=== PATIENT | female | born 1965 | race Caucasian/White ===

== ENCOUNTER 2023-03-14 15:26 | Outpatient (AMB) | payer SELFPAY ==
--- NOTE | 2023-03-14 15:28 | HO.NEPHOV_ITS ---
HPI HPI Comments History of Present Illness Details I had the privilege of seeing Katerina in follow-up of her hypertension. She has had a diagnosis of left breast cancer and had radiation. She is on anastrozole. Her blood sugars have been better. Her blood pressure has been at goal. She had ingrowing toenail on her right big toe and had it fixed. Ever since she has been having lack of sensation and some paresthesia/ lack of sensation in and around the big toe and the 2nd toe on the right side. She denies any chest pain, shortness of breath, nausea, vomiting, diarrhea, orthostatic symptoms, pedal edema. She has no dysuria or hematuria. She had an MRI of the foot which did not show anything remarkable as per the patient. She has history of some neuropathy and has been on gabapentin. Otherwise she did not have any other complaints at the time of this office visit. [facility] Medical History (Updated 03/15/23 @ 07:39 by Jordan Reddy MD) Hypertension Family History Mother Hypertension Renal failure Social History (Updated 03/14/23 @ 15:38 by Ann-Marie Houston) Alcohol intake: current Comment: occ Patient Tobacco Use Status: Never used Tobacco Vital Signs 03/14/23 15:29 Height 5 ft 11 in Weight 239 lb 8 oz BMI 33.4 BP 122/72 Blood Pressure Location Lt brachial Position Sitting Pulse 83 Pulse Source Pulse Oximeter Pulse Oximetry (%) 96 Oxygen Delivery Method Room Air Physical Exam Vital Signs: Last Vital Signs Pulse 83 03/14/23 15:29 BP 122/72 03/14/23 15:29 Pulse Ox 96 03/14/23 15:29 Oxygen Delivery Method Room Air 03/14/23 15:29 BMI result Body Mass Index 33.4 Const General: comfortable and no acute distress Orientation/consciousness: patient oriented x3 HEENT Head: Yes normocephalic Mouth: Normal oral and palatal mucosa present Eyes EOM: EOMs intact bilaterally Neck Neck: Yes supple Resp Auscultation: clear to auscultation bilaterally Cardio Jugular venous distension: no JVD Rate: regular rate GI Palpation (GI): Soft to palpation Auscultation: normal bowel sounds General: Yes no CVA tenderness Back/Spine/Pelvis Back: no CVA tenderness Skin General skin exam: no rashes or lesions noted Neuro General: patient oriented x3 and moves all extremities Extrem General: Yes no pedal edema Assessment & Plan Assessment & Plan (1) Hypertension: Code(s): I10 - Essential (primary) hypertension Qualifiers: Hypertension type: primary hypertension Qualified Code(s): I10 - Essential (primary) hypertension Plan Media has longstanding hypertension which is well controlled on the current dose of medications. She is tolerating losartan very well without any side effects. Her serum potassium is normal and her serum calcium is at baseline. She maintains good hydration and avoids nonsteroidal anti-inflammatories. She is concerned about her paresthesia/absence of sensation in and around lateral aspect of her right big toe extending into the interdigital space between the 1st and the 2nd toe on the same side. She was wondering whether it is due to a trap nerve or peripheral neuropathy. I suggested that she may have to see a neurologist for further evaluation and diagnostics for a definite diagnosis. I did not make any medication changes today but answered all her questions and concerns. No medication refills were requested. Follow-up given. Orders: Orders Electrolytes 03/14/23 I10 - Essential (primary) hypertension Protein Creatinine Ratio, Ur 03/14/23 I10 - Essential (primary) hypertension Blood Urea Nitrogen 03/14/23 I10 - Essential (primary) hypertension Creatinine 03/14/23 I10 - Essential (primary) hypertension Coding Level of Care Code Est Pt Level 3 (25969) Diagnoses Primary hypertension I10 Hypertension type: primary hypertension Results Reviewed Nephrology Results: No Data to Display
[2023-03-14 15:29] VITALS: BP 122/72; PULSE 83; O2SAT 96; BMI 33.4
== END 2023-03-14 16:23 | disposition home or self-care (01) ==
PROVIDERS: PCP Internal Medicine; Visit Provider Internal Medicine Nephrology
DX: I10 Essential (primary) hypertension (principal)
CPT/HCPCS: 99213

== ENCOUNTER → 2023-03-14 15:26 | Outpatient (BNVA) | payer BC, SELFPAY | PROVIDERS: PCP Internal Medicine; Visit Provider Internal Medicine Nephrology ==

== ENCOUNTER 2023-09-10 15:18 | Outpatient (AMB) | payer BC, SELFPAY ==
[2023-09-10 15:47] VITALS: BP 118/68; PULSE 82; O2SAT 94; BMI 33.9
--- NOTE | 2023-09-10 15:47 | HO.NEPHOV_ITS ---
Vital Signs 09/10/23 15:47 Height 5 ft 11 in Weight 243 lb BMI 33.9 BP 118/68 Blood Pressure Location Lt brachial Position Sitting Pulse 82 Pulse Source Pulse Oximeter Pulse Oximetry (%) 94 Oxygen Delivery Method Room Air Intake Visit Reasons: 6M follow up/ LVM Server Manager Required: No Accompanied by: Self / Same As Patient Allergies No Known Allergies Allergy (Verified 09/10/23 15:52) HPI Comments Details: I had the privilege of seeing Katerina in follow-up of her hypertension. She has had a diagnosis of left breast cancer and had radiation. She is on anastrozole. Her blood sugars have been better. Her blood pressure has been at goal. She had ingrowing toenail on her right big toe and had it fixed. Ever since she has been having lack of sensation and some paresthesia/ lack of sensation in and around the big toe and the 2nd toe on the right side. She has seen Neurology. She denies any chest pain, shortness of breath, nausea, vomiting, diarrhea, orthostatic symptoms, pedal edema. She has no dysuria or hematuria. She had an MRI of the foot which did not show anything remarkable as per the patient. She has history of some neuropathy and has been on gabapentin. Otherwise she did not have any other complaints at the time of this office visit. [facility] Medical History (Updated 03/16/23 @ 19:25 by Jordan Reddy MD) Hypertension Family History Mother Hypertension Renal failure Social History Alcohol intake: current Comment: [facility] Patient Tobacco Use Status: Never used Tobacco Review of Systems Const All systems reviewed & are unremarkable except as noted in HPI and below Physical Exam Vital Signs: Last Vital Signs Pulse 82 09/10/23 15:47 Pulse Ox 94 09/10/23 15:47 Oxygen Delivery Method Room Air 09/10/23 15:47 Const General: comfortable and no acute distress Orientation/consciousness: patient oriented x3 HEENT Head: Yes normocephalic Mouth: Normal oral and palatal mucosa present Eyes EOM: EOMs intact bilaterally Neck Neck: Yes supple Resp Auscultation: clear to auscultation bilaterally Cardio Jugular venous distension: no JVD Rate: regular rate GI Palpation (GI): Soft to palpation Auscultation: normal bowel sounds General: Yes no CVA tenderness Back/Spine/Pelvis Back: no CVA tenderness Skin General skin exam: no rashes or lesions noted Neuro General: patient oriented x3 and moves all extremities Extrem General: Yes no pedal edema Results Reviewed Nephrology Results: No Data to Display Assessment & Plan Assessment & Plan (1) Hypertension: Code(s): I10 - Essential (primary) hypertension Category: Medical Qualifiers: Hypertension type: primary hypertension Qualified Code(s): I10 - Essential (primary) hypertension Plan Katerina has longstanding hypertension which is well controlled on the current dose of medications. She is tolerating losartan very well without any side effects. Her serum potassium is normal and her serum calcium is at baseline. She mainta ins good hydration and avoids nonsteroidal anti-inflammatories. I did not make any medication changes today but answered all her questions and concerns. No medication refills were requested. Follow-up given. Orders: Orders Creatinine Today I10 - Essential (primary) hypertension Electrolytes Today I10 - Essential (primary) hypertension Protein Creatinine Ratio, Ur Today I10 - Essential (primary) hypertension Blood Urea Nitrogen Today I10 - Essential (primary) hypertension Coding Level of Care Code Est Pt Level 4 (10762) Diagnoses Primary hypertension I10 Hypertension type: primary hypertension
== END 2023-09-10 16:17 | disposition home or self-care (01) ==
PROVIDERS: PCP Internal Medicine; Visit Provider Internal Medicine Nephrology
DX: I10 Essential (primary) hypertension (principal)
CPT/HCPCS: 99214

== ENCOUNTER → 2023-09-10 15:18 | Outpatient (BNVA) | payer BC, SELFPAY | PROVIDERS: PCP Internal Medicine; Visit Provider Internal Medicine Nephrology ==

== ENCOUNTER 2024-09-15 14:55 | Outpatient (AMB) | payer BC, SELFPAY ==
--- OUTSIDE RECORDS SUMMARY | 2024-07-03 05:00 | XMS_ITS ---
[facility] Organization [facility] Address [address] [place] [id number] Care Team Providers Care Polisher Eyeglass Frames Name Role Phone Nader Lombardi MD Primary Care Provider Unavail Cande Neri Unavailable [phone] REASON FOR VISIT too soon Encounters Encounter Location Date Provider Diagnosis [address] [address] 07/03/2024 Cande Mendoza Plan Of Treatment Next Appt Details Provider Name:Cande negro, 09/22/2024 09:00:00 AM, [address] [place] [address], [phone], Provider Name:Cande negro, 10/21/2024 09:30:00 AM, [address] [place] [address], [phone], Provider Name:Cande negro, 11/24/2024 09:00:00 AM, [address] [place] [address], [phone], Progress Notes * Katerina STARKEYDOB:1965 (59 yo F)Acc No.[id number]:07/03/2024 Progress Notes Patient: Katerina CARCAMO Provider: Serenity Mendoza DPM :1965 A ge:58 Y S ex:Female Date:07/03/2024 Address:[address] [place] [address], [id number] Pcp:Nader Lombardi MD Subjective: * Chief Complaints: * 1 . Too soon. * Medical History: Objective: * Vitals: Assessment: Plan: * Treatment: * Images: * The named appointment provid er may or may not be the originator of this progress note, and it is not deemed complete until electronically signed by the appointment provider. Sign off status: Pending * Provider: Serenity Mendoza DPM Date: 0 07/03/2024 Generated for Torin carr/Oly/Micheal on: 09/15/2024 04:01 PM EDT
--- NOTE | 2024-09-15 15:31 | HO.NEPHOV_ITS ---
Vital Signs 09/15/24 15:32 Height 5 ft 11 in Weight 245 lb 2 oz BMI 34.2 BP 138/86 Blood Pressure Location Lt brachial Position Sitting Pulse 107 H Pulse Source Pulse Oximeter Pulse Oximetry (%) 95 Oxygen Delivery Method Room Air Intake Visit Reasons: 1 yr follow up-Conf Meat Clerk Required: No Accompanied by: Self / Same As Patient Allergies No Known Allergies Allergy (Verified 09/15/24 15:32) HPI Comments Details: I had the privilege of seeing Katerina in follow-up of her hypertension. She has had a diagnosis of left breast cancer and had radiation. She is on anastrozole. She had a hip replacement. Her blood pressure has been at goal. She denies any chest pain, shortness of breath, nausea, vomiting, diarrhea, orthostatic symptoms, pedal edema. She has no dysuria or hematuria. Her A1c has gone up. She has history of some neuropathy and has been on gabapentin. Otherwise she did not have any other complaints at the time of this office visit. [facility] Medical History (Updated 03/16/23 @ 19:25 by Jordan Reddy MD) Hypertension Family History Mother Hypertension Renal failure Social History Alcohol intake: current Comment: occ Patient Tobacco Use Status: Never used Tobacco Review of Systems Const All systems reviewed & are unremarkable except as noted in HPI and below Physical Exam Vital Signs: Last Vital Signs Pulse 107 H 09/15/24 15:32 BP 138/86 09/15/24 15:32 Pulse Ox 95 09/15/24 15:32 Oxygen Delivery Method Room Air 09/15/24 15:32 BMI result Body Mass Index 34.2 Const General: comfortable and no acute distress Orientation/consciousness: patient oriented x3 HEENT Head: Yes normocephalic Mouth: Normal oral and palatal mucosa present Eyes EOM: EOMs intact bilaterally Neck Neck: Yes supple Resp Auscultation: clear to auscultation bilaterally Cardio Jugular venous distension: no JVD Rate: regular rate GI Palpation (GI): Soft to palpation Auscultation: normal bowel sounds General: Yes no CVA tenderness Back/Spine/Pelvis Back: no CVA tenderness Skin General skin exam: no rashes or lesions noted Neuro General: patient oriented x3 and moves all extremities Extrem General: Yes no pedal edema Assessment & Plan Assessment & Plan (1) Hypertension: Code(s): I10 - Essential (primary) hypertension Category: Medical Qualifiers: Hypertension type: primary hypertension Qualified Code(s): I10 - Essential (primary) hypertension Plan Katerina has longstanding hypertension which is well controlled on the current dose of medications. She is tolerating losartan very well without any side effects. Her serum potassium is normal and her serum calcium is at baseline.I increased her Jardiance to 25 mg daily. She maintains good hydration and avoids nonsteroidal anti-inflammatories. I did not make any medication changes today but answered all her questions and concerns. No other medication refills were requested. Follow-up given. Orders: Orders Creatinine 8 Months I10 - Essential (primary) hypertension Blood Urea Nitrogen 8 Months I10 - Essential (primary) hypertension Protein Creatinine Ratio, Ur 8 Months I10 - Essential (primary) hypertension Electrolytes 8 Months I10 - Essential (primary) hypertension Medications: New 2 empagliflozin 25 mg PO DAILY 90 tabs 3RF Coding Level of Care Code Est Pt Level 4 (35344) Diagnoses Primary hypertension I10 Hypertension type: primary hypertension
[2024-09-15 15:32] VITALS: BP 138/86; PULSE 107; O2SAT 95; BMI 34.2
--- OUTSIDE RECORDS SUMMARY | 2024-09-15 16:02 | XMS_ITS | Continuity of Care Document ---
Author Organization [facility] [address] [place] [address] Phone [phone] Care Team Providers Care Building Trades Teacher Name Role Phone Nader Lombardi M.D. Care Team Information Recei jose daniel [phone] Problems Active Problems Provider Date Carcinoma of breast Trace Devine M.D. Onse t: 01/26/2022 Type 2 diabetes mellitus Trace Devine M.D. Onset: 06/26/2023 Total replacement of hip Trace Devine M.D. Onset: 07/22/2024 Social History Type Date Description Comments Sex Female Sex Unknown Tobacco Use Start: Unknown Never Smoked Cigarettes ETOH Use Rarely consumes alcohol Allergies and adverse reactions Description No Known Drug Allergies Medications Active Medications SIG Qnty Indications Order ing Provider Date Mounjaro7.5mg/0.5ML Solution Pen-Inject 1 injection every week as directed 6ml Trace Devine M.D. 10/08/2023 Rlpewflea90at Tablets 1 tab by mouth every day 90tabs Trace Devine M.D. 09/25/2023 Zcskzovrvb971al Capsules Take Two Capsules By Mouth Every Evening AT Bedtime 180caps Trace Devine M.D. 01/26/2022 Losartan Xpaofdgob59pt Tablets Take One Tablet By Mouth Once Daily Unknown Rosuvastatin Pevvpbk51en Tablets Take One Tablet By Mouth Every Day Unknown Onetouch Delica Plus Lancets Extra Fine 33GPlus 33G Misc Nader Lombardi M.D. History Medications Lzvkgyd9uu Tablets 1 by mouth every day 90tabs Trace Devine M.D. 09/24/19 24 - 09/25/2023 Vital Signs Date Vital Result Comment 07/22/2024 11:15am BP Systolic 124 mmHg BP Diastolic 80 mmHg Heart Rate 72 /min Height 71 inches 5'11 Weight 235.00 lb BMI (Body Mass Index) 32.8 kg/m2 Results Test Acquired Date Facility Test Result H/L Range N ote Glucose Fingerstick 07/22/2024 Inhouse Glucose Fingerstick 146 Hemoglobin A1c 07/22/2024 Inhouse Hemoglobin A1c 6.7% Glucose Fingerstick 10/08/2023 Inhouse Glucose Fingerstick 121 Hemoglobin A1c 10/08/2023 Inhouse Hemoglobin A1c 6.5% Glucose Fingerstick 06/26/2023 Inhouse Glucose Fingerstick 116 Hemoglobin A1c 06/26/2023 Inhouse Hemoglobin A1c 6.0% Glucose Fingerstick 12/26/2022 Inhouse Glucose Fingerstick 146 Hemoglobin A1c 12/26/2022 Inhouse Hemoglobin A1c 7.8% Cortisol 07/25/2022 [facility] Cortisol 0.6 g/dL 1 Glucose Fingerstick 07/18/2022 Inhouse Glucose Fingerstick 127 Hemoglobin A1c 07/18/2022 Inhouse Hemoglobin A1c 6.6% Glucose Fingerstick 01/26/2022 Inhouse Glucose Fingerstick 141 1 Reference Range: 6-10 am: 6.0-18.4 ug/dL 4-8 pm: 2.7-10.5 ug/dL Medical Devices Description No Information Available Encounters Type Date Location Provider Dx Diagnosis Office Visit 07/22/2024 11:15a Main Office Trace Devine M.D. E11.8 Type 2 diabetes mellitus with unspecified complications Assessments Date Code Description Provider 07/22/2024 E11.8 Type 2 diabetes mellitus with unspecified complications Trace Devine M.D. Plan of Treatment Future Appointment(s):* 12/22/2024 1:30 pm - Trace Devine M.D. at Main Office 10/08/2023 - Trace Devine M.D.* E11.8 Type 2 diabetes mellitus with unspecified complications * Functional Status Description No Information Available Mental Status Description No Information Available Referrals Description No Information Available
--- OUTSIDE RECORDS SUMMARY | 2024-09-15 16:02 | XMS_ITS | Clinical Summary ---
Author Organization [facility] Address [address] [place] [address] Care Team Providers Care Licensed Marine Engineer Name Role Phone Jordan Reddy MD Primary Care Provider [phone] Social History Tobacco Use Types Packs/Day Years Used Date Smoking Tobacco: Never Assessed Comments Unknown Sex and Gender Information Value Date Recorded Sex Assigned at Not on file Legal Sex Female 4:37 PM EST Gender Identity Not on file Sexual Orientation Not on file Plan of Treatment Health Maintenance Due Date Last Done Comments Hepatitis C Virus Screening 1965 HIV Screening 1977 DTaP/Tdap/Td Vaccines (1 - Tdap) 07/24/1983 Pap Smear (Ages 21-65) 1985 Mammogram 2004 Colonoscopy 2009 Pneumococcal Vaccines 50+ (1 of 1 - PCV) 2014 Zoster (Shingles) Vaccine (1 of 2) 2014 COVID-19 Vaccine ( - 2023-2 5 season) 2023 Influenza Vaccine 09/25/2024 RSV Vaccine 60 years and old er and Patients (1 - 1-dose 75+ series) 07/24/2039 Hepatitis B Vaccines Aged Out No long er eligible based on patient's age to complete this topic Insurance [facility] - PPO Care Teams Licensed Marine Engineer Relationship Specialty Start Date End Date Jordan Reddy MD PCP - General Nephrology 04/01/23
--- OUTSIDE RECORDS SUMMARY | 2024-09-15 16:02 | XMS_ITS | Clinical Summary ---
Author Organization [facility] Address [address] [address] [place] [address] Phone Care Team Providers Care Industrial Gas Fitter Helper Name Role Phone Nader Lombardi MD Primary Care Provider Allergies No known active allergies Medications metFORMIN (GLUCOPHAGE) 500 MG tablet Take 2 tablets by mouth 1 (one) time each day in the morning 500mg at night Active gabapentin (NEURONTIN) 300 MG capsule Take 2 capsules by mouth every night 07/18/2020 Active anastrozole (ARIMIDEX) 1 MG chemo tablet Take 1 tablet by mouth 1 (one) time each day 05/30/2020 Active Semaglutide (OZEMPIC, 0.25 OR 0.5 MG/DOSE, SC) Inject under the skin Active rosuvastatin (CRESTOR) 10 MG tablet Take 10 mg by mouth 1 (one) time each day Active cholecalciferol (VITAMIN D-3) 25 MCG (1000 UT) tablet Take 1,000 Units by mouth 1 (one) time each day Active losartan (COZAAR) 50 MG tablet Take 50 mg by mouth 1 (one) time each day Active Active Problems Problem Noted Date Diagnosed Date Malignant tumor of breast 07/26/2022 Morbid obesity 07/26/2022 Obese class I 07/26/2022 Type 2 diabetes mellitus 07/26/2022 Well adult 07/26/2022 Polyneuropathy due to type 2 diabetes mellitus 0 03/19/2022 Hypertension 03/20/2021 Essential hypertension 05/04/2020 Intraductal carcinoma in situ of left breast Chest pain 04/30/2017 Pulmonary fibrosis 04/30/2017 Family History Medical History Relation Comments Hypertension Mother Kidney disease Mother Relation Status Comments Mother Social History Tobacco Use Types Packs/Day Years Used Date Smoking Tobacco: Never Smokeless Tobacco: Never Tobacco Cessation:Counseling Given: Not Answered Comments Unknown Sex and Gender Information Value Date Recorded Sex Assigned at Not on file Legal Sex Female 4:57 PM EST Gender Identity Not on file Sexual Orientation Not on file Last Filed Vital Signs Vital Sign Reading Time Taken Comments Blood Pressure 118/70 07/26/2022 3:41 PM EDT Pulse 88 07/26/2022 3:41 PM EDT Temperature - - Respiratory Rate - - Oxygen Saturation 98% 03/20/2021 4:14 PM EST Inhaled Oxygen Concentration - - Weight 111 kg (245 lb 9.6 oz) 07/26/2022 3:41 PM EDT Height - - Body Mass Index - - Plan of Treatment Health Maintenance Due Date Last Done Comments Breast Cancer Screening 1965 Pneumococcal Vaccine: 50+ Ye ars (1 of 2 - PCV) 07/24/1983 Colorectal Cancer Screening: Annual FOBT 2013 Colorectal Cancer Screening: Colonoscopy 2013 Colorectal Cancer Screening: Sigmoidoscopy 2013 Diabetes: Hemoglobin A1C 07/04/2021 Diabetes: Ophthalmology Exam 07/04/2021 Diabetes: Pedal Pulse Checked 07/04/2021 Diabetes: Sensory Foot Exam 07/04/2021 Diabetes: Visual Foot Exam 07/04/2021 Influenza Vaccine (#1) 2024 Hepatitis B Vaccine Aged Out No longe r eligible based on patient's age to complete this topic Insurance [facility] Care Teams Industrial Gas Fitter Helper Relationship Specialty Start Date End Date Nader Lombardi MD [address] [place] [address] PCP - General 03/07/20
--- OUTSIDE RECORDS SUMMARY | 2024-09-15 16:02 | XMS_ITS | Clinical Summary ---
Author Organization [facility] Address [address] [place] [address] Care Team Providers Care Line Assigner Name Role Phone Nader Lombardi MD Primary Care Provider [phone] Allergies No known active allergies Medications Medication Sig Dispensed Refills Start Date End Date Status metFORMIN (GLUCOPHAGE) tablet 500 mgIndications:2 tabs in AM 1 in PM Take 500 mg by mouth 3 (three) times a day. 0 Active rosuvastatin (CRESTOR) tablet 10 mg Take 10 mg by mouth daily. 0 Active Active Problems Problem Noted Date Diagnosed Date Ductal carcinoma in situ (DCIS) of left breast 1 03/09/2019 Family History Medical History Relation Name Comments Asthma Father Basal cell carcinoma Mother Diabetes Mother Hypertension Mother Relation Name Status Comments Father Mother Social History Tobacco Use Types Packs/Day Years Used Date Smoking Tobacco: Never Smokeless Tobacco: Never Alcohol Use Standard Drinks/Week Comments Yes 0 (1 standard drink = 0.6 oz pur e alcohol) On occasion Sex and Gender Information Value Date Recorded Sex Assigned at Not on file Gender Identity Not on file Sexual Orientation Not on file Job Start Date Occupation Industry Not on file Not on file Not on file Last Filed Vital Signs Vital Sign Reading Time Taken Comments Blood Pressure 164/92 01/06/2020 2:01 PM EST Pulse 107 01/06/2020 2:01 PM EST Temperature 36.8 C (98.3 F) 01/06/2020 2:01 PM EST Respiratory Rate - - Oxygen Saturation - - Inhaled Oxygen Concentration - - Weight 112.5 kg (248 lb) 01/06/2020 2:01 PM EST Height 180.3 cm (5' 11 ) 01/06/2020 2:01 PM EST Body Mass Index 34.59 01/06/2020 2:01 PM EST Plan of Treatment Health Maintenance Due Date Last Done Comments Hepatitis C Screening 1965 COVID-19 Vaccine (#1) 1969 Pneumococcal Vaccine (1 of 2 - PCV) 1970 Depression Screening 1976 Preventative Health Evaluation 1982 DTap / Tdap / Td (1 - Tdap) 07/24/1983 Shingrix-Zoster Vaccine (1 of 2) 07/24/1983 Cervical Cancer Screening (P ap Smear) 1985 Colon Cancer Screening (Colonoscopy) 2009 Breast Cancer Screening (Mammogram) 2014 Influenza Vaccine (#1) 2024 RSV Adult > 60+ Yrs or Pregn ant (1 - 1-dose 75+ series) 07/24/2039 Hepatitis B Vaccines Aged Out No long er eligible based on patient's age to complete this topic RSV Ped < 20 months Aged Out No longe r eligible based on patient's age to complete this topic Care Teams Line Assigner Relationship Specialty Start Date End Date Nader Lombardi MD [address] [facility] [address] [place] [address] PCP - General Internal Medicine 01/05/20
== END 2024-09-15 16:07 | disposition home or self-care (01) ==
LOC: HO.HKAS 14:56
PROVIDERS: PCP Internal Medicine; Visit Provider Internal Medicine Nephrology
DX: I10 Essential (primary) hypertension (principal)
CPT/HCPCS: 99214